=== PATIENT | female | born 1960 | race Caucasian/White ===

== ENCOUNTER 2019-09-27 15:54 | Observation (INO) | payer OTHER ==
[~2019-09-27] VITALS: Ht 165.1 cm; Wt 150.1 kg
--- NOTE | 2019-09-27 16:07 | NUR ---
PT TO ROOM VIA WC
--- NOTE | 2019-09-27 16:39 | NUR ---
PT RESTING OFFERED NO NEW COMPLAITNS TOLERATED NEB TREATMENT W/O INCIDENT, CALL SANCHEZ WITHIN REACH AND SON A TBEDSIDE
--- NOTE | 2019-09-27 16:51 | NUR ---
IV ACCESS OBATINED AND MEDICATED ORDERED AFTER LAB WORK DRAWN
[2019-09-27 16:58] LABS: HEMATOCRIT 46.5 % (37.0-47.0); HEMOGLOBIN 15.7 g/dl (12.0-16.0); IMMATURE GRANULOCYTES 0.5 % (0.0-5.0); MEAN CORPUSCULAR HGB 30.7 pG CALC (26.0-32.0); MEAN CORPUSCULAR HGB CONC 33.8 g/L CALC (32.0-36.0); NEUT# 4.95 thou/uL (2.00-7.15); RED BLOOD COUNT 5.11 mill/uL (4.20-5.60)
[2019-09-27 17:11] LABS: ANION GAP 14 (6-22 (CALC)); BUN 11 mg/dL (7-17); BUN/CREATININE RATIO 14 (12-20 (CALC)); CARBON DIOXIDE 30 mmol/l (22-30); CHLORIDE 100 mmol/l (95-108); CREATININE 0.7 mg/dL (0.5-1.0); GFR > 60 ML/MIN (>=60 (CALC)); GFR FOR AFR.AMER. > 60 ML/MIN (>=60 (CALC)); POTASSIUM 4.6 mmol/l (3.5-5.1); SODIUM 139 mmol/l (137-146)
--- NOTE | 2019-09-27 17:12 | NUR ---
ASSISTED TO BATHROOM VIA WHEELCHAIR
--- NOTE | 2019-09-27 17:20 | NUR ---
ASSISTING PT FROM BATHROOM PT STATES SHE HAS A BOIL TO [employer] THAT HAS "BUSTED OPEN". ASSISTED PT WITH CLEANSING OF AREA AND PRESSURE APPLIED. COPIOUS AMOUNTS OF BROWN FOUL SMELLING DRAINAGE CLEANSED, OBTAINED CULTURE, PT STATES SHE DOES NOT WISH FOR EDP TO LOOK AT. PT STATES SHE GETS THEM ALL THE TIME. EDP MADE AWARE AND CULTURE ORDERED. PT TOLERATED WELL
--- NOTE | 2019-09-27 17:24 | NUR ---
PT BACK FROM BATHROOM TOLERATED WELL, BACK TO STRETCHER, CALL SANCHEZ WITHIN REACH.
[2019-09-27] MEDS ORDERED: XARELTO20 MG PO (17:30)
[2019-09-27] MEDS ORDERED: LEVOTHYROXIN100 MCG PO (17:30)
[2019-09-27] MEDS ORDERED: METOPROL TAR25 MG PO (17:30)
[2019-09-27] MEDS ORDERED: METFORMIN HCL1000 MG PO (17:32)
[2019-09-27] MEDS ORDERED: GLIMEPIRIDE2 MG PO (17:32)
[2019-09-27] MEDS ORDERED: LISINOPRIL20 MG PO (17:33)
[2019-09-27] MEDS ORDERED: [UNRECOGNIZED DRUG - OTHER] PO (17:34)
[2019-09-27] MEDS ORDERED: FISH OIL1000 MG PO (17:34)
[2019-09-27] MEDS ORDERED: B12 FAST DIS5000 MCG PO (17:35)
[2019-09-27] MEDS ORDERED: ASPIRIN81 MG PO (17:35)
[2019-09-27] MEDS ORDERED: BL MAGNESIUM250 MG PO (17:36)
--- NOTE | 2019-09-27 17:44 | NUR ---
CAIO JEFFREY MD SPOKE WITH PATIENT REGARDING ADMISSION, PT AGREEABLE TO ADMIT
--- NOTE | 2019-09-27 19:07 | NUR ---
REPORT CALLED TO [facility] ON MED SURG
--- NOTE | 2019-09-27 19:20 | NUR ---
PT. TAKEN TO CT FLOOR VIA STRETCHER, NO C/O.
--- NOTE | 2019-09-27 19:45 | NUR ---
RECIEVED CALL FROM SHEELA IN LAB WITH CRITICAL LACTIC ACID RESULTS-3.0-DR. MUSTAFA CALLED WITH RESULT AND ORDERS RECIEVED-NS BOLUS HUNG AND INFUSING VIA LAC SITE. SIOTE IS HEALTHY AT THIS TIME. CALL LIGHT IN REACH. WILL CONT TO MONITOR.
[2019-09-27 20:07] VITALS: BP 144/66
--- NOTE | 2019-09-27 21:30 | NUR ---
PATIENT RESTING IN BED-TAKING NEB TREATMENT AT THIS ITME. PATIENT REFUSED TO HAVE ABG DRAWN-STATES NOT AT THIS ITME. CALL LIGHT IN REACH. WILL CONT TO MONITOR.
--- NOTE | 2019-09-27 22:15 | NUR ---
PATIENT RESTING IN [id number]-COVERED WITH 2UNITS OF NOVALOG SQ PER SLIDING SCALE COVERAGE. CALL LIGHT IN REACH. WILL CONT TO MONITOR
--- NOTE | 2019-09-27 23:00 | NUR ---
RECEIVED CALL FROM [facility] WITH CRITICAL LACTIC ACID-3.4. SPOKE WITH DR. PUCKETT AND NEW ORDER FOR ANOTHER 1LITER NS BOLUS GIVE. IVF BOLUS IN PROGRESS AT THIS TIME. PATIENT RESTING IN BED. PROVIDED WITH DIET SODA PER PATIENT REQUEST. CALL LIGHT IN REACH. WILL CONT TO MONITOR.
[2019-09-27 23:20] LABS: URINE BILIRUBIN - DIPSTICK NEGATIVE (NEGATIVE); URINE BLOOD DIPSTICK SMALL (NEGATIVE); URINE GLUCOSE - DIPSTICK >=1000 mg/dL (NEGATIVE); URINE KETONE TRACE mg/dL (NEGATIVE); URINE LEUK ESTERASE TRACE (Negative); URINE NITRITE - DIPSTICK NEGATIVE (Negative); URINE PROTEIN - DIPSTICK NEGATIVE (NEG-TRACE); URINE UROBILINOGEN - DIPSTICK 0.2 E.U./dL (0.2)
[2019-09-27 23:24] LABS: URINE BACTERIA FEW hpf; URINE CLARITY HAZY; URINE COLOR STRAW; URINE EPITHELIAL CELLS FEW EPI/hpf (0-FEW)
[2019-09-28] VITALS: BP 138/79
--- NOTE | 2019-09-28 00:11 | NUR ---
NS BOLUS FINISHED ORDERED. RESTING IN BED WITH NO COMPLAINTS AT THIS TIME. IVF NS PATENT AND INFUSING VIA LEFT AC SITE AT 75CC/HR ORDERED. TELE MONITOR IN PLACE. CALL LIGHT IN REACH. WILL CONT TO MONITOR.
--- NOTE | 2019-09-28 02:07 | NUR ---
APPEARS SLEEPING WITH HOB ELEVATED AND EYES CLOSED. IVF PATENT AND INFUSING VIA LAC SITE AT 75CC/HR. RESP ARE EVEN AND UNLABORED. CALL LIGHT IN REACH. WILL CONT TO MONITOR.
[2019-09-28 04:00] VITALS: BP 137/82
--- NOTE | 2019-09-28 04:44 | NUR ---
PATIENT RESTING IN BED WITH NO COMPLAINTS AT THIS TIME. IVF PATENT AND INFUSING TO LEFT AC AT 75CC/HR. LACTIC ACID HAS BEEN DRAWN. STILL WAITING FOR SPUTUM SPEC WHEN POSSIBLE. CALL LIGHT IN REACH. WILL CONT TO MONITOR.
--- NOTE | 2019-09-28 05:56 | NUR ---
RECIEVED CALL FROM CHAPIN IN LAB-LACTIC ACID 3.0 TRENDING DOWN. WILL CONT TO MONITOR.
--- NOTE | 2019-09-28 07:20 | NUR ---
PT RESTING QUIETLY IN BED. NO RESP DISTRESS NOTED. ASSESSMENT COMPLETED. PT SLIGHTLY ANXIOUS OF THE LACTIC ACID BEING ELEVATED. MOTHER HAD THE SAME CONDITION WHICH SHE AT THE SAME AGE THE PATIENT IS TODAY. REASSURANCE GIVEN TO PATIENT THAT SHE IS BEING MONITORED AND THE SHE WAS NOT IN GRAVE CONDITION DUE TO THE FACT THAT SHE WAS ON A MED/SURG FLOOR RATHER THAN IN ICU. PT REASSURRED AND FELT BETTER WITH THIS NEW KNOWLEDGE. WILL CONTINUE TO MONITOR PT'S CONDITION. CALL LIGHT WITHIN REACH.
[2019-09-28 07:38] VITALS: BP 131/77
[2019-09-28 10:20] VITALS: BP 147/83
--- NOTE | 2019-09-28 12:30 | NUR ---
CAIO DESIR TECH READING THE MONITOR CALLED STATING PT IS IN AFIB RATE 135. PT RESTING IN BED. STATES SHE CAN FEEL HER HEART BEATING. THIS HAPPENS AT HOME TO. VS 97.9, 118, 20, 141/92. INSTRUCTED PT TO REST IN BED A FEW MINTUES AND WILL RE-EVALUATE. PT HAD BEEN UP TO THE BATHROOM AND WAS SITTING ON THE SIDE OF THE BED EATING LUNCH. IV FLUIDS ARE INFUSING WITHOUT DIFFICULTY. WILL CONTINUE TO MONITOR PATIENT'S CONDITION. CALL LIGHT WITHIN REACH.
--- NOTE | 2019-09-28 12:31 | NUR ---
PT SITTING ON SIDE OF BED. NO RESP DISTRESS NOTED. NO COMPLAINTS VOICED. NO CHANGE IN ASSESSMENT. WILL CONTINUE TO MONITOR PT CONDITION. CALL LIGHT WITHIN REACH.
--- NOTE | 2019-09-28 14:33 | NUR ---
PT ALERT AND ORIENTED. PT REQUESTING A SHOWER LATER TODAY. PT STATES SHE FEELS THE SAME BUT DENIES ANY WORSENING. RESPS EVEN, UNLABBORED. PT PINK, WARM AND DRY. PT IN NAD
[2019-09-28 15:49] VITALS: BP 141/85
--- NOTE | 2019-09-28 16:55 | NUR ---
AT 1615 ER CALLED TO NOTIFY STAFF HERE THAT THE PT CONVERTED TO NORMAL SINUS RHYTHM RATE OF 75.
--- NOTE | 2019-09-28 17:53 | NUR ---
1700 CHRIS ALONSO TOLD OF PT'S CONVERSION TO SINUS RHYTHM RATE 83. EDUARDO SILVA DC'Byron.
[2019-09-28 18:47] VITALS: BP 133/84
--- NOTE | 2019-09-28 19:16 | NUR ---
PATIENT RESTING IN BED AT THIS TIME-POSITIONED ON HER SIDE. AWAKE ALERT AND ORIENTEDX3. IVF NS PATENT AND INFUSING AT 75CC/HR VIA LAC SITE. TELE MONITOR IN PLACE. NO COMPLAINTS AT THIS ITME. CALL LIGHT IN REACH.WILL CONT TO MONITOR.
--- NOTE | 2019-09-28 20:47 | NUR ---
PATIENT AWAKE SITTING UP IN BED WATCHING [id number]. MEDICATED WITH NOVALOG 4UNITS SQ PER NOVALOG SLIDING SCALE COVERAGE PROTOCOL. PROVIDED WITH HS SNACK. INSTRUCTED PATIENT ON USE OF IS Q1H W/A. PATIENT VERBALIZES UNDERSTANDING ON THE USE OF DEVICE-ABLE TO DEMONSTRATE PROPER USE OF THE DEVICE. PATIENT STILL WITH NON-PRODUCTIVE COUGH. STILL AWAITING SPUTUM SPEC WHEN PATIENT IS ABLE TO PROVIDE. SAFETY PRECAUTIONS REINFORCED. CALL LIGHT IN REACH. WILL CONT TO MONITOR.
--- NOTE | 2019-09-29 | NUR ---
PATIENT SITTING UP ON SIDE OF THE BED. AWAKE ALERT AND ORIENTEDX3. PATIENT IS VOIDING QS CLEAR YELLOW URINE IN BR. IVF PATENT ANDINFUSING VIA LEFT AC SITE AT 75CC/HR, SOLU-MEDROL GIVEN ORDERED. TELE MONITOR IN PLACE. LUNGS ARE DIMINISHED THROUGHOUT. USING IS INSTRUCTED. SPEC CUP PROVIDED AGAIN FOR SPUTUM SPECC WHEN SHE IS ABLE TO PROVIDED. CALL LIGHT IN REACH. WILL CONT TO MONITOR.
[2019-09-29 00:26] VITALS: BP 139/82
--- NOTE | 2019-09-29 02:59 | NUR ---
PATIENT UP TO BR TO VOID-NEW BAG OF IVF HUNG AND INFUSING VIA LAC SITE AT 75CC/HR. SITE HEALTHY. BACK TO BED. PROVIDED WITH DIET SODA PER REQUEST. CALL LIGHT IN REACH. WILL CONT TO MONITOR.
--- NOTE | 2019-09-29 04:14 | NUR ---
PATIENT RESTINGIN BED-APPEARS SLEEPING AT THIS ITME. RESP ARE EVEN AND UNLABORED. TELE MONITOR IN PLACE. IVF PATENT AND INFUSING AT 75CC/HR VIA LAC SITE. CALL LIGHT IN REACH. WILL CONT TO MONITOR.
[2019-09-29 04:20] VITALS: BP 150/83
[2019-09-29 05:18] LABS: IMMATURE GRANULOCYTES 0.8 % (0.0-5.0); MEAN CELL VOLUME 92.3 fL CALC (80.0-100.0); MEAN CORPUSCULAR HGB 30.6 pG CALC (26.0-32.0); MEAN CORPUSCULAR HGB CONC 33.2 g/L CALC (32.0-36.0); NEUT# 6.86 thou/uL (2.00-7.15); RED BLOOD COUNT 4.31 mill/uL (4.20-5.60); RED CELL DISTRI WIDTH 12.3 % (11.5-15.5)
[2019-09-29 05:30] LABS: HEMATOCRIT 39.8 % (37.0-47.0); HEMOGLOBIN 13.2 g/dl (12.0-16.0)
[2019-09-29 05:41] LABS: BUN 14 mg/dL (7-17); BUN/CREATININE RATIO 23 (12-20 (CALC)); CHLORIDE 104 mmol/l (95-108); CREATININE 0.6 mg/dL (0.5-1.0); GFR > 60 ML/MIN (>=60 (CALC)); GFR FOR AFR.AMER. > 60 ML/MIN (>=60 (CALC)); MAGNESIUM 1.6 mg/dL (1.6-2.3); SODIUM 136 mmol/l (137-146)
[2019-09-29 05:47] LABS: ANION GAP 15 (6-22 (CALC)); CARBON DIOXIDE 23 mmol/l (22-30); POTASSIUM 5.5 mmol/l (3.5-5.1)
[2019-09-29 07:33] VITALS: BP 154/80
--- NOTE | 2019-09-29 07:33 | NUR ---
PT SITTING UP IN BED. ASSESSMENT COMPLETED. POC DISCUSSED WITH PT. PT VERBALIZES UNDERSTANDING. PT DENIES ANY NEEDS AT THIS TIME. WILL CONTINUE TO MONITOR. CALL LIGHT IN REACH.
[2019-09-29 10:50] VITALS: BP 139/82
--- NOTE | 2019-09-29 11:12 | NUR ---
PT SITTING UP IN BED. FAMILY AT BEDSIDE. PT DENIES ANY NEEDS AT THIS TIME. CALL LIGHT IN REACH.
--- NOTE | 2019-09-29 15:35 | NUR ---
MARISELA ALONSO AND DR PANDEY AT BEDSIDE.
[2019-09-29 16:00] VITALS: BP 154/87
--- NOTE | 2019-09-29 16:00 | NUR ---
IV LEAKING. D/C FROM [facility]. PT STATES SHE WILL BE D/C TODAY. AT THIS TIME SHE DOES NOT HAVE TRANSPORTATION. MARISELA ALONSO, TO TALK WITH [employer] SUPERVISOR IN REGARDS TO TRANSPRTATION. WILL AWAIT D/C ORDERS. PT DENIES ANY NEEDS AT THIS TIME. WILL CONTINUE TO MONITOR. CALL LIGHT IN REACH.
[2019-09-29] MEDS ORDERED: KEFLEX500 M1 PO (16:37)
[2019-09-29] MEDS ORDERED: ZITHROMAX500 MG PO (16:37)
[2019-09-29] MEDS ORDERED: PREDNISONE50 MG PO (16:38)
[2019-09-29] MEDS ORDERED: BIOTUSSIN PO (16:44)
--- NOTE | 2019-09-29 17:52 | NUR ---
Discharge instructions given. Patient verbalizes understanding of same. Discharged in stable condition via [facility] Home with staff. All belongings sent with pt.
--- NOTE | 2019-10-01 14:34 | NUR ---
Wound culture results given to Annabella Rodriguez APRN, who states she will follow-up with patient.
== END 2019-09-29 18:15 | disposition home or self-care (01) ==
LOC: ED 15:54 → ED-I 17:42 → ED 17:54 → MS2 17:55
PROVIDERS: Family Medicine; Nurse Practitioner Family; ADMIT Internal Medicine; ATTEND Internal Medicine
DX: J43.9 Emphysema, unspecified (principal); J20.9 Acute bronchitis, unspecified; I10 Essential (primary) hypertension; I48.91 Unspecified atrial fibrillation; E11.9 Type 2 diabetes mellitus without complications; E03.9 Hypothyroidism, unspecified; F43.10 Post-traumatic stress disorder, unspecified; F41.0 Panic disorder [episodic paroxysmal anxiety]; M19.90 Unspecified osteoarthritis, unspecified site; F17.200 Nicotine dependence, unspecified, uncomplicated; Z79.01 Long term (current) use of anticoagulants; Z79.84 Long term (current) use of oral hypoglycemic drugs
CPT/HCPCS: G0378

== ENCOUNTER 2022-11-18 23:25 | Emergency (ER) | payer OTHER ==
[~2022-11-18] VITALS: Ht 165.1 cm; Wt 350.0 kg
[~2022-11-18 23:25] MED LIST changes: -LISINOPRIL20 M1 PO; -LOPRESSOR50 M1 PO; -METFORMIN HCL500 M1 PO
[2022-11-18 23:34] VITALS: BP 149/95
[2022-11-18 23:52] VITALS: BP 142/91
[2022-11-19] VITALS (11 sets, daily range): BP systolic 106–155; BP diastolic 75–119
[2022-11-19 00:52] LABS: BASO% 0.3 % (0-3); EOS% 5.9 % (0-8); IMMATURE GRANULOCYTES 0.2 % (0.0-5.0); MEAN CELL VOLUME 92.4 fL CALC (80.0-100.0); MEAN CORPUSCULAR HGB 31.4 pG CALC (26.0-32.0); MONO% 9.9 % (2-13); NEUT# 3.51 thou/uL (2.00-7.15); NEUT% 57.7 % (42-76); RED BLOOD COUNT 5.25 mill/uL (4.20-5.60)
[2022-11-19 01:03] LABS: HEMATOCRIT 48.5 % (37.0-47.0); HEMOGLOBIN 16.5 g/dl (12.0-16.0)
[2022-11-19 01:06] LABS: ALKALINE PHOSPHATASE 79 u/l (38-126); BILIRUBIN, TOTAL 1.2 mg/dL (0.02-1.3); BUN 10 mg/dL (8-23); BUN/CREATININE RATIO 17 (12-20 (CALC)); CARBON DIOXIDE 26 mmol/l (22-30); CHLORIDE 100 mmol/l (95-108); CREATININE 0.6 mg/dL (0.5-1.0); GFR FOR AFR.AMER. > 60 ML/MIN (>=60 (CALC)); GFR OTHER RACES > 60 ML/MIN (>=60 (CALC)); SGOT/AST 58 u/l (9-36); SODIUM 134 mmol/l (137-146)
[2022-11-19 01:08] LABS: ANION GAP 12 (6-22 (CALC)); POTASSIUM 4.3 mmol/l (3.5-5.1)
[2022-11-19] MEDS ORDERED: LOPRESSOR50 M1 PO ×2 (02:14→02:16)
[2022-11-19] MEDS ORDERED: LISINOPRIL20 M1 PO ×2 (02:14→02:16)
[2022-11-19] MEDS ORDERED: METFORMIN HCL500 M1 PO ×2 (02:14→02:16)
== END 2022-11-19 02:45 | disposition home or self-care (01) ==
LOC: ED 23:25
PROVIDERS: Family Medicine
DX: I48.91 Unspecified atrial fibrillation (principal); I10 Essential (primary) hypertension; E11.65 Type 2 diabetes mellitus with hyperglycemia; E03.9 Hypothyroidism, unspecified; F41.0 Panic disorder [episodic paroxysmal anxiety]; T46.4X6A Underdosing of angiotensin-converting-enzyme inhibitors, initial encounter; T44.7X6A Underdosing of beta-adrenoreceptor antagonists, initial encounter; Z91.128 Patient's intentional underdosing of medication regimen for other reason; Z79.84 Long term (current) use of oral hypoglycemic drugs

== ENCOUNTER → 2022-11-18 | Emergency (ER) | payer OTHER ==
[~2022-11-18] MED LIST: ASPIRIN81 MG PO; B12 FAST DIS5000 MCG PO; BIOTUSSIN PO; BL MAGNESIUM250 MG PO; FISH OIL1000 MG PO; GLIMEPIRIDE2 MG PO; KEFLEX500 M1 PO; LEVOTHYROXIN100 MCG PO; LISINOPRIL20 M1 PO; LISINOPRIL20 MG PO; LOPRESSOR50 M1 PO; METFORMIN HCL1000 MG PO; METFORMIN HCL500 M1 PO; METOPROL TAR25 MG PO; PREDNISONE50 MG PO; XARELTO20 MG PO; ZITHROMAX500 MG PO; [UNRECOGNIZED DRUG - OTHER] PO
== END | disposition home or self-care (01) | DRG 951 ==
LOC: ED 23:22 → LWOBS 23:27
DX: Z53.21 Procedure and treatment not carried out due to patient leaving prior to being seen by health care provider (principal)

== ENCOUNTER 2023-03-18 12:34 | Observation (INO) | payer OTHER ==
[~2023-03-18] VITALS: Ht 165.1 cm; Wt 130.0 kg
[2023-03-18] VITALS (12 sets, daily range): BP systolic 95–145; BP diastolic 54–85
[~2023-03-18 12:34] MED LIST changes: +LISINOPRIL20 M1 PO; +LOPRESSOR50 M1 PO; +METFORMIN HCL500 M1 PO
[2023-03-18 13:41] LABS: BASO% 0.4 % (0-3); HEMATOCRIT 53.9 % (37.0-47.0); HEMOGLOBIN 18.3 g/dl (12.0-16.0); IMMATURE GRANULOCYTES 0.3 % (0.0-5.0); LYMPH% 32.7 % (15-41); MEAN CELL VOLUME 91.8 fL CALC (80.0-100.0); MEAN CORPUSCULAR HGB 31.2 pG CALC (26.0-32.0); MONO% 6.1 % (2-13); NEUT# 4.41 thou/uL (2.00-7.15); NEUT% 55.5 % (42-76); RED BLOOD COUNT 5.87 mill/uL (4.20-5.60); RED CELL DISTRI WIDTH 11.8 % (11.5-15.5)
[2023-03-18 13:54] LABS: ALBUMIN 4.9 g/dL (3.2-5.0); ALKALINE PHOSPHATASE 77 u/l (38-126); ANION GAP 17 (6-22 (CALC)); BILIRUBIN, TOTAL 2.2 mg/dL (0.02-1.3); BUN 13 mg/dL (8-23); BUN/CREATININE RATIO 17 (12-20 (CALC)); CARBON DIOXIDE 22 mmol/l (22-30); CHLORIDE 102 mmol/l (95-108); CREATININE 0.7 mg/dL (0.5-1.0); GFR FOR AFR.AMER. > 60 ML/MIN (>=60 (CALC)); GFR OTHER RACES > 60 ML/MIN (>=60 (CALC)); POTASSIUM 4.7 mmol/l (3.5-5.1); SGOT/AST 32 u/l (9-36); SODIUM 137 mmol/l (137-146); TOTAL PROTEIN 7.9 g/dL (6.3-8.2)
[2023-03-18 14:24] LABS: TSH, 3RD GENERATION 3.12 uIU/mL (0.47 - 4.68)
[2023-03-19] VITALS (10 sets, daily range): BP systolic 56–129; BP diastolic 19–81
[2023-03-19 05:15] LABS: BASO% 0.4 % (0-3); EOS% 5.5 % (0-8); HEMOGLOBIN 16.4 g/dl (12.0-16.0); IMMATURE GRANULOCYTES 0.1 % (0.0-5.0); LYMPH% 37.7 % (15-41); MEAN CELL VOLUME 92.3 fL CALC (80.0-100.0); MEAN CORPUSCULAR HGB 31.6 pG CALC (26.0-32.0); MEAN CORPUSCULAR HGB CONC 34.2 g/dL CAL (32.0-36.0); MONO% 9.2 % (2-13); NEUT# 3.36 thou/uL (2.00-7.15); NEUT% 47.1 % (42-76); RED BLOOD COUNT 5.19 mill/uL (4.20-5.60); RED CELL DISTRI WIDTH 11.7 % (11.5-15.5)
[2023-03-19 05:27] LABS: HEMATOCRIT 47.9 % (37.0-47.0)
[2023-03-19 05:31] LABS: ALKALINE PHOSPHATASE 57 u/l (38-126); BILIRUBIN, TOTAL 1.4 mg/dL (0.02-1.3); BUN 12 mg/dL (8-23); BUN/CREATININE RATIO 16 (12-20 (CALC)); CALCULATED LDLCHOLESTEROL 32 mg/dL (62-129 (CALC)); CHLORIDE 102 mmol/l (95-108); CHOLESTEROL HDL RATIO 4.5 (<4.4 (CALC)); CREATININE 0.8 mg/dL (0.5-1.0); GFR FOR AFR.AMER. > 60 ML/MIN (>=60 (CALC)); GFR OTHER RACES > 60 ML/MIN (>=60 (CALC)); HDL CHOLESTEROL 31 mg/dL (39.0-59.0); MAGNESIUM 1.3 mg/dL (1.6-2.3); SGOT/AST 24 u/l (9-36); SODIUM 139 mmol/l (137-146); TOTAL CHOLESTEROL 139 mg/dl (0-199); TOTAL TRIGLYCERIDES 383 mg/dl (0-149); VLDL CHOLESTROL 77 mg/dl (1-41 (CALC))
[2023-03-19 05:32] LABS: ALBUMIN 3.6 g/dL (3.2-5.0); ANION GAP 9 (6-22 (CALC)); CARBON DIOXIDE 32 mmol/l (22-30); POTASSIUM 3.7 mmol/l (3.5-5.1); TOTAL PROTEIN 6.2 g/dL (6.3-8.2)
[2023-03-20 00:48] VITALS: BP 75/42
[2023-03-20 01:34] VITALS: BP 75/42
[2023-03-20 04:39] VITALS: BP 129/58
[2023-03-20 05:46] LABS: BASO% 0.5 % (0-3); EOS% 4.7 % (0-8); HEMATOCRIT 47.5 % (37.0-47.0); HEMOGLOBIN 16.3 g/dl (12.0-16.0); IMMATURE GRANULOCYTES 0.3 % (0.0-5.0); LYMPH% 38.4 % (15-41); MEAN CELL VOLUME 90.6 fL CALC (80.0-100.0); MEAN CORPUSCULAR HGB 31.1 pG CALC (26.0-32.0); MEAN CORPUSCULAR HGB CONC 34.3 g/dL CAL (32.0-36.0); MONO% 7.9 % (2-13); NEUT# 2.98 thou/uL (2.00-7.15); NEUT% 48.2 % (42-76); RED BLOOD COUNT 5.24 mill/uL (4.20-5.60); RED CELL DISTRI WIDTH 11.7 % (11.5-15.5)
[2023-03-20 06:04] LABS: ALBUMIN 3.5 g/dL (3.2-5.0); ALKALINE PHOSPHATASE 62 u/l (38-126); ANION GAP 15 (6-22 (CALC)); BILIRUBIN, TOTAL 1.3 mg/dL (0.02-1.3); BUN 12 mg/dL (8-23); BUN/CREATININE RATIO 18 (12-20 (CALC)); CARBON DIOXIDE 23 mmol/l (22-30); CHLORIDE 102 mmol/l (95-108); CREATININE 0.6 mg/dL (0.5-1.0); GFR FOR AFR.AMER. > 60 ML/MIN (>=60 (CALC)); GFR OTHER RACES > 60 ML/MIN (>=60 (CALC)); MAGNESIUM 1.5 mg/dL (1.6-2.3); POTASSIUM 3.4 mmol/l (3.5-5.1); SGOT/AST 23 u/l (9-36); SODIUM 137 mmol/l (137-146); TOTAL PROTEIN 5.8 g/dL (6.3-8.2)
[2023-03-20 06:35] VITALS: BP 123/75
[2023-03-20 08:49] VITALS: BP 114/70
[2023-03-20 11:07] VITALS: BP 129/88
== END 2023-03-20 12:49 | disposition home or self-care (01) ==
LOC: ED 12:34 → ED-I 14:50 → ED 15:11 → MS2 15:12
PROVIDERS: Family Medicine; Nurse Practitioner Family; ADMIT Internal Medicine; ATTEND Internal Medicine
DX: I48.91 Unspecified atrial fibrillation (principal); I11.0 Hypertensive heart disease with heart failure; I50.9 Heart failure, unspecified; E11.9 Type 2 diabetes mellitus without complications; E66.9 Obesity, unspecified; Z68.42 Body mass index [BMI] 45.0-49.9, adult; F17.210 Nicotine dependence, cigarettes, uncomplicated; E03.9 Hypothyroidism, unspecified; F43.10 Post-traumatic stress disorder, unspecified; Z79.84 Long term (current) use of oral hypoglycemic drugs; Z59.02 Unsheltered homelessness; Z59.48 Other specified lack of adequate food; Z58.6 Inadequate drinking-water supply
CPT/HCPCS: G0378; J3475